=== PATIENT | male | born 1965 | race Caucasian/White ===

== ENCOUNTER 2018-05-06 15:41 | Emergency (ER) | payer OTHER, SELFPAY ==
[2018-05-06] MEDS ORDERED: cloNIDine 0.1 MG TAB ONE (16:53)
[2018-05-06] MEDS ORDERED: traMADol HCl 50 MG TAB ONE (16:53)
== END 2018-05-06 17:00 | disposition home or self-care (01) ==
LOC: MADERS 15:41
DX: G89.29 Other chronic pain (principal); M54.2 Cervicalgia; I10 Essential (primary) hypertension; I25.2 Old myocardial infarction; E11.9 Type 2 diabetes mellitus without complications; F17.210 Nicotine dependence, cigarettes, uncomplicated; Z79.899 Other long term (current) drug therapy
CPT/HCPCS: 99283